=== PATIENT | female | born 1955 | race Caucasian/White ===

== ENCOUNTER 2017-01-06 07:47 | Emergency (ER) | payer MEDICAID ==
[2017-01-06 08:59] VITALS: BP 128/80
== END 2017-01-06 08:59 | disposition home or self-care (01) ==
LOC: ED 07:47
DX: M54.5 Low back pain (principal); I10 Essential (primary) hypertension; M54.30 Sciatica, unspecified side

== ENCOUNTER 2017-02-20 19:37 | Emergency (ER) | payer MEDICAID ==
[~2017-02-20] VITALS: Ht 154.9 cm; Wt 80.3 kg
[2017-02-20 22:19] VITALS: BP 115/83
== END 2017-02-20 22:19 | disposition home or self-care (01) ==
LOC: ED 19:37
DX: G44.209 Tension-type headache, unspecified, not intractable (principal); Z90.710 Acquired absence of both cervix and uterus
CPT/HCPCS: J1885; J2765

== ENCOUNTER 2017-10-24 09:01 | Emergency (ER) | payer MEDICAID ==
[~2017-10-24] VITALS: Ht 154.9 cm; Wt 75.3 kg
[2017-10-24 09:06] VITALS: Ht 154.9 cm; Wt 75.3 kg
[2017-10-24 11:12] VITALS: BP 147/79
== END 2017-10-24 11:12 | disposition home or self-care (01) ==
LOC: ED 09:01
DX: M51.36 Other intervertebral disc degeneration, lumbar region (principal); M25.552 Pain in left hip

== ENCOUNTER 2018-02-04 12:32 | Emergency (ER) | payer MEDICAID ==
[~2018-02-04] VITALS: Ht 154.9 cm; Wt 70.3 kg
[2018-02-04 12:36] VITALS: Ht 154.9 cm; Wt 70.3 kg
[2018-02-04 13:29] VITALS: BP 108/55
== END 2018-02-04 13:29 | disposition home or self-care (01) ==
LOC: ED 12:32
DX: S39.012A Strain of muscle, fascia and tendon of lower back, initial encounter (principal)

== ENCOUNTER 2018-08-04 10:08 | Emergency (ER) | payer MEDICAID ==
[~2018-08-04] VITALS: Ht 154.9 cm; Wt 71.4 kg
[2018-08-04 10:18] VITALS: BP 144/77
[2018-08-04 13:48] LABS: microscopic required? YES; urine erythrocyte NEGATIVE (NEGATIVE)
== END 2018-08-04 14:23 | disposition home or self-care (01) ==
LOC: ED 10:08
PROVIDERS: Emergency Medicine
DX: S09.8XXA Other specified injuries of head, initial encounter (principal); G89.29 Other chronic pain; M54.5 Low back pain; I10 Essential (primary) hypertension; E11.9 Type 2 diabetes mellitus without complications; Z90.710 Acquired absence of both cervix and uterus; Z88.6 Allergy status to analgesic agent; W11.XXXA Fall on and from ladder, initial encounter; Y93.89 Activity, other specified; Y92.89 Other specified places as the place of occurrence of the external cause; Y99.8 Other external cause status

== ENCOUNTER 2018-09-02 09:52 | Emergency (ER) | payer MEDICAID ==
[~2018-09-02] VITALS: Ht 154.9 cm; Wt 70.3 kg
[2018-09-02 09:55] VITALS: Ht 154.9 cm; Wt 70.3 kg
[2018-09-02 11:15] VITALS: BP 117/68
== END 2018-09-02 11:15 | disposition home or self-care (01) ==
LOC: ED 09:52
DX: H92.01 Otalgia, right ear (principal); R51 Headache; I10 Essential (primary) hypertension; E11.9 Type 2 diabetes mellitus without complications; F17.210 Nicotine dependence, cigarettes, uncomplicated; Z88.6 Allergy status to analgesic agent; Z90.710 Acquired absence of both cervix and uterus
CPT/HCPCS: Q0162

== ENCOUNTER 2018-10-04 09:51 | Emergency (ER) | payer MEDICAID ==
[~2018-10-04] VITALS: Ht 154.9 cm; Wt 74.8 kg
[2018-10-04 10:00] VITALS: Ht 154.9 cm; Wt 74.8 kg
[2018-10-04 12:11] VITALS: BP 154/61
== END 2018-10-04 13:20 | disposition home or self-care (01) ==
LOC: ED 09:51
DX: G89.29 Other chronic pain (principal); M54.5 Low back pain; S09.8XXA Other specified injuries of head, initial encounter; M51.36 Other intervertebral disc degeneration, lumbar region; M47.896 Other spondylosis, lumbar region; E11.9 Type 2 diabetes mellitus without complications; E66.9 Obesity, unspecified; F17.210 Nicotine dependence, cigarettes, uncomplicated; I10 Essential (primary) hypertension; Z68.30 Body mass index [BMI] 30.0-30.9, adult; Z98.51 Tubal ligation status; Z90.710 Acquired absence of both cervix and uterus; Z88.6 Allergy status to analgesic agent; W01.198A Fall on same level from slipping, tripping and stumbling with subsequent striking against other object, initial encounter; Y93.89 Activity, other specified; Y92.89 Other specified places as the place of occurrence of the external cause; Y99.8 Other external cause status
CPT/HCPCS: 99406; J1100

== ENCOUNTER 2018-12-24 11:59 | Emergency (ER) | payer MEDICAID ==
[~2018-12-24] VITALS: Ht 154.9 cm; Wt 67.1 kg
[2018-12-24 12:02] VITALS: Ht 154.9 cm; Wt 67.1 kg
[2018-12-24 13:56] VITALS: BP 107/51
== END 2018-12-24 13:30 | disposition home or self-care (01) ==
LOC: ED 11:59
DX: S80.01XA Contusion of right knee, initial encounter (principal); M54.5 Low back pain; S09.8XXA Other specified injuries of head, initial encounter; F17.210 Nicotine dependence, cigarettes, uncomplicated; I10 Essential (primary) hypertension; E11.9 Type 2 diabetes mellitus without complications; Z90.710 Acquired absence of both cervix and uterus; Z98.51 Tubal ligation status; Z88.6 Allergy status to analgesic agent; W18.39XA Other fall on same level, initial encounter; Y93.02 Activity, running; Y92.811 Bus as the place of occurrence of the external cause; Y99.8 Other external cause status
CPT/HCPCS: 99406; Q0092

== ENCOUNTER 2019-02-24 09:25 | Emergency (ER) | payer MEDICAID ==
[~2019-02-24] VITALS: Ht 154.9 cm; Wt 68.5 kg
[2019-02-24 09:34] VITALS: BP 152/78; Ht 154.9 cm; Wt 68.5 kg
== END 2019-02-24 10:06 | disposition home or self-care (01) ==
LOC: ED 09:25
DX: M54.5 Low back pain (principal); I10 Essential (primary) hypertension; E11.9 Type 2 diabetes mellitus without complications; Z98.51 Tubal ligation status; Z90.710 Acquired absence of both cervix and uterus; Z88.6 Allergy status to analgesic agent

== ENCOUNTER 2019-04-06 07:35 | Emergency (ER) | payer MEDICAID ==
[~2019-04-06] VITALS: Ht 154.9 cm; Wt 68.0 kg
[2019-04-06 07:38] VITALS: Ht 154.9 cm; Wt 68.0 kg
[2019-04-06 10:52] VITALS: BP 141/57
== END 2019-04-06 10:52 | disposition home or self-care (01) ==
LOC: ED 07:35
DX: S62.91XA Unspecified fracture of right hand, initial encounter for closed fracture (principal); S93.401A Sprain of unspecified ligament of right ankle, initial encounter; S09.8XXA Other specified injuries of head, initial encounter; F17.210 Nicotine dependence, cigarettes, uncomplicated; I10 Essential (primary) hypertension; E11.9 Type 2 diabetes mellitus without complications; Z90.710 Acquired absence of both cervix and uterus; Z88.6 Allergy status to analgesic agent; W18.30XA Fall on same level, unspecified, initial encounter; Y93.89 Activity, other specified; Y92.89 Other specified places as the place of occurrence of the external cause; Y99.8 Other external cause status
CPT/HCPCS: 99406; A4570

== ENCOUNTER 2019-05-21 15:37 | Emergency (ER) | payer MEDICAID ==
[~2019-05-21] VITALS: Ht 154.9 cm; Wt 69.4 kg
[2019-05-21 16:00] VITALS: Ht 154.9 cm; Wt 69.4 kg
[2019-05-21 17:41] VITALS: BP 129/81
== END 2019-05-21 17:41 | disposition home or self-care (01) ==
LOC: ED 15:37
DX: S62.316A Displaced fracture of base of fifth metacarpal bone, right hand, initial encounter for closed fracture (principal); S80.212A Abrasion, left knee, initial encounter; I10 Essential (primary) hypertension; E11.9 Type 2 diabetes mellitus without complications; G89.29 Other chronic pain; M54.5 Low back pain; Z98.51 Tubal ligation status; Z98.890 Other specified postprocedural states; Z88.6 Allergy status to analgesic agent; W01.0XXA Fall on same level from slipping, tripping and stumbling without subsequent striking against object, initial encounter; Y93.89 Activity, other specified; Y92.89 Other specified places as the place of occurrence of the external cause; Y99.8 Other external cause status
CPT/HCPCS: A4570

== ENCOUNTER 2019-06-23 10:02 | Emergency (ER) | payer MEDICAID ==
[~2019-06-23] VITALS: Ht 154.9 cm; Wt 76.7 kg
[2019-06-23 10:12] VITALS: Ht 154.9 cm; Wt 76.7 kg
[2019-06-23 11:43] VITALS: BP 120/79
== END 2019-06-23 11:43 | disposition home or self-care (01) ==
LOC: ED 10:02
DX: B34.9 Viral infection, unspecified (principal); J98.01 Acute bronchospasm; I10 Essential (primary) hypertension; E11.9 Type 2 diabetes mellitus without complications; Z98.51 Tubal ligation status; Z90.710 Acquired absence of both cervix and uterus; Z88.6 Allergy status to analgesic agent
CPT/HCPCS: 87804; J7512; J7613; J7644; Q0092

== ENCOUNTER 2019-07-18 11:01 | Emergency (ER) | payer MEDICAID ==
[~2019-07-18] VITALS: Ht 154.9 cm; Wt 71.7 kg
[2019-07-18 11:04] VITALS: Ht 154.9 cm; Wt 71.7 kg
[2019-07-18 12:57] VITALS: BP 152/84
== END 2019-07-18 12:57 | disposition home or self-care (01) ==
LOC: ED 11:01
DX: M54.41 Lumbago with sciatica, right side (principal); G89.29 Other chronic pain; F17.210 Nicotine dependence, cigarettes, uncomplicated; I10 Essential (primary) hypertension; E11.9 Type 2 diabetes mellitus without complications; Z88.6 Allergy status to analgesic agent
CPT/HCPCS: 99406; J3010; Q0162